=== PATIENT | female | born 1965 | race Caucasian/White ===

== ENCOUNTER 2018-09-21 05:56 | Day surgery (SDC) | payer OTHER ==
[2018-09-21] MEDS ORDERED: LIDOCAINE 4% SOLUTION 50 ML BTL (07:39)
[2018-09-21] MEDS ORDERED: FENTAnyl 50 MCG/ML VIAL (09:12)
[2018-09-21] MEDS ORDERED: MIDAZOLAM 1 MG/ML 2 ML INJ ×2 (09:12)
== END 2018-09-21 12:42 | disposition home or self-care (01) ==
LOC: GIL 05:56
DX: K64.9 Unspecified hemorrhoids (principal); K31.7 Polyp of stomach and duodenum; E11.9 Type 2 diabetes mellitus without complications; E78.00 Pure hypercholesterolemia, unspecified
CPT/HCPCS: 43239; 82962; 88305; 88312